=== PATIENT | male | born 1945 | race Caucasian/White ===

== ENCOUNTER 2022-03-04 09:31 | Emergency (ER) | payer BC, MEDICARE ==
[~2022-03-04] VITALS: Ht 177.8 cm; Wt 69.4 kg
[2022-03-04] MEDS ORDERED: IV NORMAL SALINE 1,000ML 1,000 ML IV SCH (10:00)
--- NOTE | 2022-03-04 10:16 | PHYS DOC ---
Past History Additional Past Medical Histor: ALZHEIMER'S DISEASE Past Surgical History: Cholecystectomy, Tonsillectomy Additional Past Surgical Histo: HERNIA REPAIR, HEART CATH-STENT, HEMORRHOID BANDING, RIGHT WRIST Alcohol Use: None Adult General Chief Complaint Chief Complaint: BACK PAIN OR INJURY HPI HPI Patient is a 76 year old male who presents to the emergency department by EMS for evaluation of back pain. Patient has history of Alzheimer's dementia and is confused to events at baseline according to patient's . The patient reportedly became dizzy and fell yesterday evening, falling on to his back and hitting the back of his head. He did not have any reported loss of consciousness and was able to be helped back up and ambulate immediately after the fall. Patient's states that the patient has been struggling with ur inary retention over the past week and recently saw urology yesterday. He was started on tamsulosin to assist with urinating. He had taken this medication prior to the episode of dizziness reported by his . She states that after awakening this morning he was complaining of worsening pain in his low back and was difficult to move because of his pain. She thus called EMS to have the patient brought to the emergency department for further evaluation. Patient denies pain at rest but does note pain in his low back with movement. Denies any headache or neck pain. Has not taken any medications for symptoms at this time. Review of Systems Review of Systems Constitutional: Denies fever or chills [] Eyes: Denies change in visual acuity, redness, or eye pain [] HENT: Denies nasal congestion or sore throat [] Respiratory: Denies cough or shortness of breath [] Cardiovascular: Denies chest pain or edema [] GI: Denies abdominal pain, nausea, vomiting, bloody stools or diarrhea [] : Denies dysuria or hematuria [] Musculoskeletal: Low back pain [] Integument: Denies rash or skin lesions [] Neurologic: Dizziness, denies headache, focal weakness or sensory changes [] All other systems were reviewed and found to be within normal limits, except as documented in this note. Allergies Allergies Allergies Coded Allergies Type Severity Reaction Last Updated Verified azithromycin Allergy Unknown 03/04/22 Yes doxycycline Allergy Unknown 03/04/22 Yes Physical Exam Physical Exam Constitutional: Alert, afebrile, no acute distress. [] HENT: Normocephalic, mild soft tissue swelling over left posterior occipital scalp, bilateral external ears normal, oropharynx moist, no oral exudates, nose normal. [] Eyes: PERRLA, EOMI, conjunctiva normal, no discharge. [] Neck: Normal range of motion, no tenderness, supple, no stridor. [] Cardiovascular:Heart rate regular rhythm, no murmur [] Lungs & Thorax: Bilateral breath sounds clear to auscultation [] Abdomen: Bowel sounds normal, soft, no tenderness, no masses, no pulsatile masses. [] Skin: Warm, dry, no erythema, no rash. [] Back: Left lower lumbar paraspinous muscular tenderness to palpation, no midline or bony tenderness. [] Extremities: No tenderness, no cyanosis, no clubbing, ROM intact, no edema. [] Neurologic: Alert, disoriented to events, mentation at baseline per spouse, normal motor function, normal sensory function, no focal deficits noted. [] Current Patient Data Vital Signs Vital Signs Date Time Temp Pulse Resp B/P (MAP) Pulse Ox O2 Delivery O2 Flow Rate FiO2 03/04/22 09:44 98.4 60 18 91/55 (67) 99 Room Air Lab Results Laboratory Tests Test 03/04/22 10:10 03/04/22 11:00 White Blood Count 6.4 x10^3/uL Red Blood Count 4.00 x10^6/uL Hemoglobin 13.2 g/dL Hematocrit 39.3 % Mean Corpuscular Volume 98 fL Mean Corpuscular Hemoglobin 33 pg Mean Corpuscular Hemoglobin Concent 34 g/dL Red Cell Distribution Width 14.2 % Platelet Count 123 x10^3/uL Neutrophils (%) (Auto) 70 % Lymphocytes (%) (Auto) 21 % Monocytes (%) (Auto) 9 % Eosinophils (%) (Auto) 1 % Basophils (%) (Auto) 0 % Neutrophils # (Auto) 4.5 x10^3uL Lymphocytes # (Auto) 1.3 x10^3/uL Monocytes # (Auto) 0.6 x10^3/uL Eosinophils # (Auto) 0.0 x10^3/uL Basophils # (Auto) 0.0 x10^3/uL Sodium Level 137 mmol/L Potassium Level 4.0 mmol/L Chloride Level 101 mmol/L Carbon Dioxide Level 28 mmol/L Anion Gap 8 Blood Urea Nitrogen 41 mg/dL Creatinine 1.9 mg/dL Estimated GFR (Cockcroft-Gault) 34.7 BUN/Creatinine Ratio 22 Glucose Level 112 mg/dL Calcium Level 8.8 mg/dL Total Bilirubin 2.3 mg/dL Aspartate Amino Transf (AST/SGOT) 101 U/L Alanine Aminotransferase (ALT/SGPT) 101 U/L Alkaline Phosphatase 28 U/L Total Protein 5.6 g/dL Albumin 2.8 g/dL Albumin/Globulin Ratio 1.0 Urine Collection Type Unknown Urine Color Gudelia Urine Clarity Clear Urine pH 6.5 Urine Specific Philipp 1.015 Urine Protein Neg Urine Glucose (UA) Neg mg/dL Urine Ketones (Stick) Neg mg/dL Urine Blood Large Urine Nitrite Neg Urine Bilirubin Neg Urine Urobilinogen Dipstick 2.0 mg/dL Urine Leukocyte Esterase Neg Urine RBC 20-40 /HPF Urine WBC 5-10 /HPF Urine Squamous Epithelial Cells Few /LPF Urine Renal Epithelial Cells Occ /LPF Urine Bacteria 0 /HPF Urine Hyaline Casts Occ /HPF Urine Mucus Slight /LPF Current Medications Medications (Trade) Dose Ordered Sig/Enedina Route PRN Reason Start Time Stop Time Status Last Admin Dose Admin Sodium Chloride 1,000 ml @ 1,000 mls/hr Q1H IV 03/04/22 10:00 03/04/22 10:59 DC 03/04/22 10:00 Sodium Chloride 1,000 ml @ 1,000 mls/hr 1X ONCE IV 03/04/22 11:30 03/04/22 12:29 03/04/22 11:30 EKG EKG Interpreted by me: Interpretation is limited by artifact, heart rate 59, sinus rhythm, normal axis, no acute ST/T wave abnormalities present [] Radiology/Procedures Radiology/Procedures [address] [id number] IMAGING REPORT Signed PATIENT: GEMA SHIPLEY ACCOUNT: [id number] : 1945 LOCATION: ER AGE: 76 SEX: M EXAM STATUS: REG ER ORD. PHYSICIAN: WHIT HOPE MD REASON: fall, left low back pain PROCEDURE: CT ABDOMEN PELVIS WO CONTRAST CT LUMBAR SPINE WO, CT ABDOMEN+PELVIS WO History: Fall, left low back pain. Technique: Noncontrast CT of the abdomen and pelvis. Noncontrast CT of the lumbar spine. Multiplanar reconstructions were performed. Comparison: None Findings: The lung bases are clear. Coronary artery calcifications. Normal heart size. No pleural effusion. The liver is unremarkable. Status post cholecystectomy. Fatty atrophy of the pancreas. Spleen and adrenal glands are unremarkable. There is a right renal staghorn calculus measuring at least 3.6 x 1.8 cm with moderate right hydronephrosis. Multiple right renal cysts and/or calyceal diverticula. Left 1.1 cm nephrolith. No left hydronephrosis. Left upper pole benign renal cysts. No ureterolithiasis. The bladder is markedly distended with mild wall irregularities which may represent diverticula. The prostate is prominent in size with mild intravesicular extension. Central prostatic calcifications. Bilateral vasectomy clips. The stomach and small bowel are unremarkable. Colonic diverticulosis without evidence of diverticulitis. Aortoiliac atherosclerotic calcification. No intra-abdominal free air or free fluid. No adenopathy. Soft tissues are unremarkable. Decreased osseous mineralization and pelvis with degenerative changes of the bilateral hips. There are 5 nonrib-bearing lumbar vertebral segments. No fracture or spondylolisthesis. Multilevel degenerative disc and facet disease. Moderate disc space narrowing L3-L4 and L4-L5. Facet hypertrophy and disc space narrowing of moderate to severe neuroforaminal narrowing on the right moderate foraminal narrowing elsewhere lumbar spine. Impression: 1. No acute traumatic findings in the abdomen, pelvis and lumbar spine. 2. Well-distended bladder with mild mural irregularity and enlarged prostate. Correlate for bladder outlet obstruction. 3. Right renal pelvis staghorn calculus with moderate right hydronephrosis. Nonobstructing left renal pelvis nephrolithiasis. 4. Multilevel degenerative changes of the lumbar spine with moderate to severe neural foraminal narrowing at L4-L5 right. Exposure: One or more of the following individualized dose reduction techniques were utilized for this examination: 1. Automated exposure control 2. Adjustment of the mA and/or kV according to patient size 3. Use of iterative reconstruction technique. Electronically signed by: Patrice Morrow MD (03/04/2022 11:16 AM) [id number] DICTATED AND SIGNED BY: PATRICE MORROW MD DATE: 03/04/22 1594 CC: WHIT HOPE MD; BALDO ADEN MD ~ [address] [address] IMAGING REPORT Signed PATIENT: GEMA SHIPLEY ACCOUNT: [id number] : 1945 LOCATION: ER AGE: 76 SEX: M EXAM STATUS: REG ER ORD. PHYSICIAN: WHIT HOPE MD REASON: fall yesterday evening, posterior head trauma, hx of dementia PROCEDURE: CT HEAD AND CERVICAL SPINE WO CT HEAD AND C-SPINE WO Date: 03/04/2022 10:51 AM Clinical Indication: Reason: fall yesterday evening, posterior head trauma, hx of dementia / Spl. Instructions: / History: Comparison: None. Technique: 5 mm axial tomographic images were obtained of the head without con trast. These were viewed on brain and bone windows. Noncontrast CT of the cervical spine was performed. Sagittal and coronal reformats were performed and evaluated. One or more of the following dose reduction techniques were utilized: Automated exposure control (AEC), Adjustment of mA and/or kV according to patient size, Use of iterative reconstruction technique such as ASiR, CT scan done according to ALARA and image gently/image wisely HEAD FINDINGS: Mild generalized cerebral and cerebellar volume loss. Mild to moderate nonspecific periventricular hypoattenuation, most commonly seen with chronic small vessel ischemic disease. No intra- or extra-axial mass or fluid collection. No acute hemorrhage. The ventricles are normal in size, shape, and morphology. The harris-white matter junction is normal. The basilar cisterns are patent. The visualized paranasal sinuses are normal. The visualized portions of the orbits and globes are normal. The mastoid air cells are clear. No aggressive osseous lesion or fracture. CERVICAL SPINE FINDINGS: The cervical spine is normally aligned. No acute fracture. No aggressive lytic or blastic osseous lesions. Moderate to severe multilevel degenerative disc space height loss. Minimal anterolisthesis of C4 on C5. Multilevel mild and moderate spinal canal stenosis secondary to disc protrusions and marginal osteophytes. Multilevel moderate to severe neuroforaminal narrowing secondary to uncovertebral arthrosis. Multilevel severe facet arthrosis. The thyroid gland is normal. No cervical lymphadenopathy. Bilateral carotid atherosclerosis. The visualized aerodigestive tract is normal. The visualized portions of the lungs are clear. IMPRESSION: 1. No acute intracranial process. 2. No acute cervical spine fracture. 3. Mild cerebral volume loss. Mild chronic small vessel ischemic disease. 4. Severe degenerative cervical spondylosis. Electronically signed by: Jacey Quarles DO (03/04/2022 11:12 AM) [id number] DICTATED AND SIGNED BY: JACEY QUARLES DO DATE: 03/04/22 1105 CC: WHTI HOPE MD; BALDO ADEN MD ~ [address] [address] IMAGING REPORT Signed PATIENT: GEMA SHIPLEY ACCOUNT: [id number] : 1945 LOCATION: ER AGE: 76 SEX: M EXAM STATUS: REG ER ORD. PHYSICIAN: WHIT HOPE MD REASON: fall last night PROCEDURE: PORTABLE CHEST 1V XR CHEST 1V History: Fall. Pain. Comparison: None. Technique: AP radiograph of the chest. Findings: The lungs are adequately and symmetrically inflated. No airspace consolidation, pleural effusion or pneumothorax. The cardiomediastinal silhouette and pulmonary vasculature are within normal limits. Atherosclerotic calcification of the aorta. Degenerative changes of the bilateral shoulders and thoracic spine. No acute osseous abnormality. Soft tissues are unremarkable. Impression: 1. No acute cardiopulmonary process. Electronically signed by: Patrice Morrow MD (03/04/2022 11:00 AM) [id number] DICTATED AND SIGNED BY: PATRICE MORROW MD DATE: 03/04/22 1058 CC: WHIT HOPE MD; BALDO ADEN MD ~ [] Heart Score C/O Chest Pain: No Risk Factors: Risk Factors: DM, Current or recent (<one month) smoker, HTN, HLP, family history of CAD, obesity. Risk Scores: Risk Factors: DM, Current or recent (<one month) smoker, HTN, HLP, family hist ory of CAD, obesity. Course & Med Decision Making Course & Med Decision Making Pertinent Labs and Imaging studies reviewed. (See chart for details) Patient was administered IV fluids in the emergency department. Patient u nderwent a straight cath in the emergency department with return of 600 mL of urine. After administration of IV fluids, the patient's blood pressure has improved and patient is able to ambulate with assistance which is his normal baseline. I compared the patient's blood work from January 2022 to today's results. Patient does have a slight increase in creatinine from 1.5-1.9 today. Also noted was an increase in bilirubin from 1.2-2.3. Remainder of blood work largely unremarkable. The patient is currently afebrile and without complaint. CT imaging performed does show evidence of multiple kidney stones. Due to repeat treatment with straight cath to resolve urinary retention with continued retention at this time, a Castaneda catheter was placed in the emergency department to help resolve urinary retention issues temporarily until follow-up with urology can be obtained in the next 3 to 5 days. The patient will be discharged on Cipro to reduce risk of infection. Advised follow-up with primary care provider regarding abnormal liver function tests and recommend repeat testing in the next 3 to 5 days. Advised return to the emergency department for any worsening symptoms. Patient's voices understanding and in agreement with treatment plan. [] Dragon Disclaimer Dragon Disclaimer This electronic medical record was generated, in whole or in part, using a voice recognition dictation system. Departure Departure: Impression: Primary Impression: Dehydration Additional Impressions: Bilateral ureteral calculi Hyperbilirubinemia Renal insufficiency Urinary retention Disposition: HOME / SELF CARE / HOMELESS Condition: IMPROVED Referrals: BALDO ADEN MD (PCP) Patient Instructions: Bilirubin, Dehydration, Adult, Kidney Stones, Urinary Retention, Acute, Male Additional Instructions: Follow-up with your primary care provider in the next 3 to 5 days for repeat comprehensive metabolic panel testing to recheck your liver and kidney function tests. You will also need to call your urologist to schedule follow-up in the next 3 to 5 days for reevaluation and removal of your indwelling Castaneda catheter. Return to the emergency department for any worsening symptoms. Scripts Tramadol Hcl (TRAMADOL HCL) 50 Mg Tablet 50 MG PO Q6-8HRS PRN for PAIN, #12 TAB Prov: WHIT HOPE MD 03/04/22 Ciprofloxacin Hcl (CIPRO) 500 Mg Tablet 1 TAB PO BID for 7 Days, #14 TAB 0 Refills Prov: WHIT HOPE MD 03/04/22 Problem Qualifiers WHIT HOPE MD March 04, 2022 10:16
[2022-03-04 10:28] LABS: BASO % 0 % (0-3); EOS % 1 % (0-3); HEMATOCRIT 39.3 % (39.0-53.0); HEMOGLOBIN 13.2 g/dL (13.0-17.5); LYMPH # 1.3 x10^3/uL (1.0-4.8); LYMPH % 21 % (24-48); MEAN CORPUSCULAR HEMOGLOBIN 33 pg (25-35); MEAN CORPUSCULAR HGB CONC 34 g/dL (31-37); MEAN CORPUSCULAR VOLUME 98 fL (79-100); MONO # 0.6 x10^3/uL (0.0-1.1); MONO % 9 % (0-9); NEUT # 4.5 x10^3uL (1.8-7.7); NEUT % 70 % (31-73); PLATELET COUNT 123 x10^3/uL (140-400); RED CELL DISTRIBUTION WIDTH 14.2 % (11.5-14.5); WHITE BLOOD COUNT 6.4 x10^3/uL (4.0-11.0)
[2022-03-04 10:35] LABS: CALCIUM 8.8 mg/dL (8.5-10.1); CREATININE 1.9 mg/dL (0.7-1.3); GFR 34.7
[2022-03-04 10:40] LABS: ALBUMIN 2.8 g/dL (3.4-5.0); TOTAL BILIRUBIN 2.3 mg/dL (0.2-1.0); TOTAL PROTEIN 5.6 g/dL (6.4-8.2)
--- NOTE | 2022-03-04 11:02 | RAD ---
XR CHEST 1V History: Fall. Pain. Comparison: None. Technique: AP radiograph of the chest. Findings: The lungs are adequately and symmetrically inflated. No airspace consolidation, pleural effusion or p neumothorax. The cardiomediastinal silhouette and pulmonary vasculature are within normal limits. Ath erosclerotic calcification of the aorta. Degenerative changes of the bilateral shoulders and thoracic spine. No acute osseous abnormality. Soft tissues are unremarkable. Impression: 1. No acute cardiopulmonary process. Electronically signed by: Patrice Damon MD (03/04/2022 11:00 AM) [id number]
--- NOTE | 2022-03-04 11:14 | RAD ---
CT HEAD AND C-SPINE WO Date: 03/04/2022 10:51 AM Clinical Indication: Reason: fall yesterday evening, posterior head trauma, hx of dementia / Spl. Ins tructions: / History: Comparison: None. Technique: 5 mm axial tomographic images were obtained of the head without contrast. These were view ed on brain and bone windows. Noncontrast CT of the cervical spine was performed. Sagittal and castillo l reformats were performed and evaluated. One or more of the following dose reduction techniques were utilized: Automated exposure control (AEC), Adjustment of mA and/or kV according to patient size, Us e of iterative reconstruction technique such as ASiR, CT scan done according to ALARA and image gentl y/image wisely HEAD FINDINGS: Mild generalized cerebral and cerebellar volume loss. Mild to moderate nonspecific periventricular hy poattenuation, most commonly seen with chronic small vessel ischemic disease. No intra- or extra-axial mass or fluid collection. No acute hemorrhage. The ventricles are normal in size, shape, and morphology. The harris-white matter junction is normal. The basilar cisterns are paten t. The visualized paranasal sinuses are normal. The visualized portions of the orbits and globes are no rmal. The mastoid air cells are clear. No aggressive osseous lesion or fracture. CERVICAL SPINE FINDINGS: The cervical spine is normally aligned. No acute fracture. No aggressive lytic or blastic osseous les ions. Moderate to severe multilevel degenerative disc space height loss. Minimal anterolisthesis of C4 on C 5. Multilevel mild and moderate spinal canal stenosis secondary to disc protrusions and marginal oste ophytes. Multilevel moderate to severe neuroforaminal narrowing secondary to uncovertebral arthrosis. Multilevel severe facet arthrosis. The thyroid gland is normal. No cervical lymphadenopathy. Bilateral carotid atherosclerosis. The visu alized aerodigestive tract is normal. The visualized portions of the lungs are clear. IMPRESSION: 1. No acute intracranial process. 2. No acute cervical spine fracture. 3. Mild cerebral volume loss. Mild chronic small vessel ischemic disease. 4. Severe degenerative cervical spondylosis. Electronically signed by: Willie Quarles DO (03/04/2022 11:12 AM) [id number]
--- NOTE | 2022-03-04 11:19 | RAD ---
CT LUMBAR SPINE WO, CT ABDOMEN+PELVIS WO History: Fall, left low back pain. Technique: Noncontrast CT of the abdomen and pelvis. Noncontrast CT of the lumbar spine. Multiplanar reconstructions were performed. Comparison: None Findings: The lung bases are clear. Coronary artery calcifications. Normal heart size. No pleural effusion. The liver is unremarkable. Status post cholecystectomy. Fatty atrophy of the pancreas. Spleen and adr enal glands are unremarkable. There is a right renal staghorn calculus measuring at least 3.6 x 1.8 cm with moderate right hydronep hrosis. Multiple right renal cysts and/or calyceal diverticula. Left 1.1 cm nephrolith. No left hydro nephrosis. Left upper pole benign renal cysts. No ureterolithiasis. The bladder is markedly distended with mild wall irregularities which may represent diverticula. The prostate is prominent in size with mild intravesicular extension. Central prostatic calcifications. B ilateral vasectomy clips. The stomach and small bowel are unremarkable. Colonic diverticulosis without evidence of diverticulit is. Aortoiliac atherosclerotic calcification. No intra-abdominal free air or free fluid. No adenopath y. Soft tissues are unremarkable. Decreased osseous mineralization and pelvis with degenerative gregory es of the bilateral hips. There are 5 nonrib-bearing lumbar vertebral segments. No fracture or spondylolisthesis. Multilevel de generative disc and facet disease. Moderate disc space narrowing L3-L4 and L4-L5. Facet hypertrophy a nd disc space narrowing of moderate to severe neuroforaminal narrowing on the right moderate foramina l narrowing elsewhere lumbar spine. Impression: 1. No acute traumatic findings in the abdomen, pelvis and lumbar spine. 2. Well-distended bladder with mild mural irregularity and enlarged prostate. Correlate for bladder outlet obstruction. 3. Right renal pelvis staghorn calculus with moderate right hydronephrosis. Nonobstructing left bogdan l pelvis nephrolithiasis. 4. Multilevel degenerative changes of the lumbar spine with moderate to severe neural foraminal narr owing at L4-L5 right. Exposure: One or more of the following individualized dose reduction techniques were utilized for thi s examination: 1. Automated exposure control 2. Adjustment of the mA and/or kV according to patient size 3. Use of iterative reconstruction technique. Electronically signed by: Patrice Damon MD (03/04/2022 11:16 AM) [id number]
[2022-03-04] MEDS ORDERED: IV NORMAL SALINE 1,000ML 1,000 ML IV ONE (11:30)
[2022-03-04 11:32] LABS: BACTERIA,URINE 0 /HPF (0-FEW); CLARITY,URINE CLEAR; COLOR,URINE AMBER; GLUCOSE,URINE NEG (NEG); HYALINE CASTS, URINE OCC /HPF; NITRITE,URINE NEG (NEG); RBC,URINE 20-40 /HPF (0-2); SQUAMOUS EPITHELIAL CELL,UR FEW /LPF
[2022-03-04 14:20] VITALS: BP 131/77
[2022-03-04] MEDS ORDERED: TRAM50TA PO (14:35)
[2022-03-04] MEDS ORDERED: CIPR500T94 PO (14:35)
== END 2022-03-04 15:05 | disposition home or self-care (01) ==
LOC: ER 09:31
DX: E86.0 Dehydration (principal); N13.2 Hydronephrosis with renal and ureteral calculous obstruction; E80.6 Other disorders of bilirubin metabolism; N28.9 Disorder of kidney and ureter, unspecified; R33.9 Retention of urine, unspecified; M54.59 Other low back pain; G30.9 Alzheimer's disease, unspecified; F02.80 Dementia in other diseases classified elsewhere, unspecified severity, without behavioral disturbance, psychotic disturbance, mood disturbance, and anxiety; Z88.1 Allergy status to other antibiotic agents; W18.09XA Striking against other object with subsequent fall, initial encounter; Y93.89 Activity, other specified; Y92.89 Other specified places as the place of occurrence of the external cause; Y99.8 Other external cause status
CPT/HCPCS: 36415; 70450; 71045; 72125; 72131; 74176; 80053; 81001; 85025; 87086; 93005; 96360; 96361; 99285; J7030

== ENCOUNTER 2022-03-07 13:05 | Emergency (ER) | payer MEDICARE, BC ==
[~2022-03-07] VITALS: Ht 177.8 cm; Wt 69.4 kg
[~2022-03-07 13:05] MED LIST: CIPR500T94 PO; TRAM50TA PO
[2022-03-07 13:57] VITALS: BP 105/46
--- NOTE | 2022-03-07 14:24 | PHYS DOC ---
Past History Additional Past Medical Histor: ALZHEIMER'S DISEASE Past Surgical History: Cholecystectomy, Tonsillectomy Additional Past Surgical Histo: HERNIA REPAIR, HEART CATH-STENT, HEMORRHOID BANDING, RIGHT WRIST Alcohol Use: None Adult General Chief Complaint Chief Complaint: URINE CATHETER PROBLEM HPI HPI Patient is a 76 year old male who presents with his for concern of Castaneda catheter dysfunction. Patient was seen in the emergency department on March 04, 2022 and was treated for acute urinary retention and dehydration. A Castaneda catheter was placed in the emergency department due to multiple recent attempts at treating urinary retention with a straight cath with no resolution. After receiving IV fluids and urinary catheter, the patient's condition improved at that time and patient was instructed to follow-up with urology and primary care outpatient per routine. Patient has history of dementia and is a poor historian. Patient's helps provide history. Patient currently denies any complaints, however the patient's states that the patient has not had any urine draining into his bag throughout the day today. Has not had any fevers, vomiting, abdominal pain, dizziness, or lightheadedness. Currently on antibiotic prophylaxis. Patient's is concerned that there may be a blockage in the Castaneda catheter and thus came to the emergency department to have this inspected. Review of Systems Review of Systems Constitutional: Denies fever or chills [] Eyes: Denies change in visual acuity, redness, or eye pain [] HENT: Denies nasal congestion or sore throat [] Respiratory: Denies cough or shortness of breath [] Cardiovascular: Denies chest pain or edema [] GI: Denies abdominal pain, nausea, vomiting, bloody stools or diarrhea [] : Denies dysuria or hematuria [] Musculoskeletal: Denies back pain or joint pain [] Integument: Denies rash or skin lesions [] Neurologic: Denies headache, focal weakness or sensory changes [] All other systems were reviewed and found to be within normal limits, except as documented in this note. Allergies Allergies Allergies Coded Allergies Type Severity Reaction Last Updated Verified azithromycin Allergy Unknown 03/04/22 Yes doxycycline Allergy Unknown 03/04/22 Yes Physical Exam Physical Exam Constitutional: Alert, afebrile, no acute distress. [] HENT: Normocephalic, atraumatic, bilateral external ears normal, oropharynx moist, no oral exudates, nose normal. [] Eyes: PERRLA, EOMI, conjunctiva normal, no discharge. [] Neck: Normal range of motion, no tenderness, supple, no stridor. [] Cardiovascular:Heart rate regular rhythm, no murmur [] Lungs & Thorax: Bilateral breath sounds clear to auscultation [] Abdomen: Bowel sounds normal, soft, no tenderness, no masses, no pulsatile masses. : Castaneda catheter appears in place with minimal urine in Castaneda bag, no sores or lesions in the genitalia [] Skin: Warm, dry, no erythema, no rash. [] Back: No tenderness, no CVA tenderness. [] Extremities: No tenderness, no cyanosis, no clubbing, ROM intact, no edema. [] Neurologic: Alert, mentation at baseline per , normal motor function, normal sensory function, no focal deficits noted. [] Current Patient Data Vital Signs Vital Signs Date Time Temp Pulse Resp B/P (MAP) Pulse Ox O2 Delivery O2 Flow Rate FiO2 03/07/22 13:57 73 18 105/46 (65) 99 Lab Results Laboratory Tests Test 03/07/22 14:40 White Blood Count 5.3 x10^3/uL Red Blood Count 3.71 x10^6/uL Hemoglobin 12.4 g/dL Hematocrit 37.0 % Mean Corpuscular Volume 100 fL Mean Corpuscular Hemoglobin 34 pg Mean Corpuscular Hemoglobin Concent 34 g/dL Red Cell Distribution Width 15.1 % Platelet Count 184 x10^3/uL Neutrophils (%) (Auto) 66 % Lymphocytes (%) (Auto) 24 % Monocytes (%) (Auto) 10 % Eosinophils (%) (Auto) 1 % Basophils (%) (Auto) 0 % Neutrophils # (Auto) 3.5 x10^3uL Lymphocytes # (Auto) 1.2 x10^3/uL Monocytes # (Auto) 0.5 x10^3/uL Eosinophils # (Auto) 0.0 x10^3/uL Basophils # (Auto) 0.0 x10^3/uL Sodium Level 130 mmol/L Potassium Level 4.6 mmol/L Chloride Level 101 mmol/L Carbon Dioxide Level 22 mmol/L Anion Gap 7 Blood Urea Nitrogen 28 mg/dL Creatinine 1.7 mg/dL Estimated GFR (Cockcroft-Gault) 39.5 BUN/Creatinine Ratio 16 Glucose Level 120 mg/dL Calcium Level 8.4 mg/dL Total Bilirubin 1.2 mg/dL Aspartate Amino Transf (AST/SGOT) 85 U/L Alanine Aminotransferase (ALT/SGPT) 79 U/L Alkaline Phosphatase 27 U/L Total Protein 5.2 g/dL Albumin 2.0 g/dL Albumin/Globulin Ratio 0.6 Current Medications Medications (Trade) Dose Ordered Sig/Enedina Route PRN Reason Start Time Stop Time Status Last Admin Dose Admin Sodium Chloride 1,000 ml @ 1,000 mls/hr Q1H IV 03/07/22 14:30 03/07/22 15:29 DC 03/07/22 14:45 Sodium Chloride 500 ml @ 0 mls/hr 1X ONCE IV 03/07/22 17:00 03/07/22 17:06 DC 03/07/22 17:00 EKG EKG Not performed [] Radiology/Procedures Radiology/Procedures Not performed [] Heart Score C/O Chest Pain: No Risk Factors: Risk Factors: DM, Current or recent (<one month) smoker, HTN, HLP, family history of CAD, obesity. Risk Scores: Risk Factors: DM, Current or recent (<one month) smoker, HTN, HLP, family history of CAD, obesity. Course & Med Decision Making Course & Med Decision Making Pertinent Labs and Imaging studies reviewed. (See chart for details) The patient's Castaneda catheter was switched out by the nurse in the emergency department with no significant return of urine. Patient ministered 1500 mL of IV fluids. After administration, the patient now has improved urinary output. Vital signs are stable and patient continues to have no complaints. The patient's lab work and examination confirmed the patient's oral intake is not meeting his needs for both nutrition and hydration. In talking with , the patient does not have any difficulty with swallowing or tolerating oral intake but rather is not initiating self oral intake without assistance from his . This could be a sign that the patient's dementia process is worsening and that patient may need to have further consultation with primary care regarding need for either home health services or possibly hospice consultation as deemed appropriate by patient's primary care provider. Condition at this time however is stable and patient does not require hospital admission at this time. I have recommended the patient's continue to frequently offer oral fluids and small food portions at home to improve oral intake and recommend close follow-up with primary care within 1 to 2 days. Advised to also follow with urology regarding indwelling Castaneda catheter to have this reassessed for removal when appropriate. Recommend return to the emergency department for any worsening symptoms. Patient's voiced understanding and in agreement with treatment plan. Dragon Disclaimer Dragon Disclaimer This electronic medical record was generated, in whole or in part, using a voice recognition dictation system. Departure Departure: Impression: Primary Impression: Dehydration Additional Impressions: Dementia Urinary retention Disposition: HOME / SELF CARE / HOMELESS Condition: STABLE Referrals: BALDO ADEN MD (PCP) Patient Instructions: Dehydration, Adult, Dementia, Urinary Retention, Acute, Male Additional Instructions: Follow-up with Dr. Aden in 2 days for reevaluation. Return to the emergency department for any worsening symptoms. Problem Qualifiers Additional Impressions: Dementia Dementia type: unspecified type Dementia behavioral disturbance: with behavioral disturbance Qualified Codes: F03.91 - Unspecified dementia with behavioral disturbance WHIT HOPE MD March 07, 2022 14:24
[2022-03-07] MEDS ORDERED: IV NORMAL SALINE 1,000ML 1,000 ML IV SCH (14:30)
[2022-03-07 15:06] LABS: BASO % 0 % (0-3); EOS % 1 % (0-3); HEMOGLOBIN 12.4 g/dL (13.0-17.5); LYMPH # 1.2 x10^3/uL (1.0-4.8); LYMPH % 24 % (24-48); MEAN CORPUSCULAR HEMOGLOBIN 34 pg (25-35); MEAN CORPUSCULAR HGB CONC 34 g/dL (31-37); MEAN CORPUSCULAR VOLUME 100 fL (79-100); MONO # 0.5 x10^3/uL (0.0-1.1); MONO % 10 % (0-9); NEUT # 3.5 x10^3uL (1.8-7.7); NEUT % 66 % (31-73); PLATELET COUNT 184 x10^3/uL (140-400); RED BLOOD COUNT 3.71 x10^6/uL (4.30-5.70); RED CELL DISTRIBUTION WIDTH 15.1 % (11.5-14.5); WHITE BLOOD COUNT 5.3 x10^3/uL (4.0-11.0)
[2022-03-07 15:08] LABS: CALCIUM 8.4 mg/dL (8.5-10.1); CREATININE 1.7 mg/dL (0.7-1.3); GFR 39.5; POTASSIUM 4.6 mmol/L (3.5-5.1)
[2022-03-07 15:14] LABS: ALBUMIN/GLOBULIN RATIO 0.6 (1.0-1.7); TOTAL BILIRUBIN 1.2 mg/dL (0.2-1.0); TOTAL PROTEIN 5.2 g/dL (6.4-8.2)
[2022-03-07] MEDS ORDERED: IV NORMAL SALINE 500ML 500 ML IV ONE (17:00)
== END 2022-03-07 19:29 | disposition home or self-care (01) ==
LOC: ER 13:05
DX: E86.0 Dehydration (principal); F03.91 Unspecified dementia, unspecified severity, with behavioral disturbance; N39.0 Urinary tract infection, site not specified; G30.9 Alzheimer's disease, unspecified; Z88.1 Allergy status to other antibiotic agents
CPT/HCPCS: 36415; 51702; 80053; 85025; 96360; 96361; 99284; J7030; J7040; 99283